=== PATIENT | female | born 1965 | race African-American/Black ===

== ENCOUNTER 2016-12-19 20:46 | Emergency (ER) | payer MEDICAID ==
[~2016-12-19] VITALS: Ht 165.1 cm; Wt 90.7 kg
[~2016-12-19 20:46] MED LIST: ABILIFY30 MG ORAL; ALBUTEROL SULF8.5 GM INH; AUGMENTIN TAB875 MG ORAL; AZITHROMYCIN250 MG ORAL; BENAZEPRIL-HCT1 EAC1 ORAL; CRESTOR10 M1 ORAL; CYCLOBENZAPRINE10 MG ORAL; DIAZEPAM10 MG ORAL; FLUOXETINE HCL20 MG ORAL; IBUPROFEN600 MG ORAL; IBUPROFEN800 M1 PO; KEFLEX500 MG ORAL; NEURONTIN300 MG ORAL; NKM; NORCO 5-325 TA1 EACH ORAL; NORCO 5-325 TA1 EACH PO; PREDNISONE20 MG ORAL; PREDNISONE5 M3 PO; PROZAC20 MG PO; VALIUM10 MG ORAL; VICODIN 5-5001 EACH ORAL; XOPENEX0.63 MG/3 HHN; ZITHROMAX250 MG ORAL; [UNRECOGNIZED DRUG - REMARK]
[2016-12-19 21:00] VITALS: BP 150/106
[2016-12-19] MEDS ORDERED: AUGMENTIN 875-1 EAC1 ORAL (21:23)
[2016-12-19] MEDS ORDERED: FLONASE ALLERG9.9 ML NS (21:23)
[2016-12-19] MEDS ORDERED: PSEUDOEPHEDRINE30 MG PO (21:23)
[2016-12-19 21:27] VITALS: BP 150/106
--- NOTE | 2016-12-19 21:36 | Emergency Room Report ---
History of Present Illness General Chief Complaint: Allergic Reaction Source: Patient Present Illness HPI [id number] with increased sinus frontal pressure, drainage to back of throat, congestion for 2-3 days Recurrent sinusitis history PMD unavailable Denies fever/chills Allergies: Coded Allergies: No Known Allergies (Unverified , 07/20/12) Patient History Past Medical History: none Past Surgical History: none Pertinent Family History: none Social History: Denies: alcohol use, drug use, smoking Last Menstrual Period: N/A Now: No Immunizations: UTD Reviewed Nursing Documentation: PMH: Agreed, PSxH: Agreed Nursing Documentation-PMH Hx Hypertension: Yes Hx Pacemaker: No Hx Asthma: Yes - BRONCHITIS Hx COPD: No Hx Diabetes: No Hx Cancer: No Hx Gastrointestinal Problems: No Hx Dialysis: No Hx Neurological Problems: No Hx Cerebrovascular Accident: No Hx Seizures: No Review of Systems All Other Systems: negative except mentioned in HPI Physical Exam Vital Signs Date Time Temp Pulse Resp B/P Pulse Ox O2 Delivery O2 Flow Rate FiO2 12/19/16 20:55 98.1 74 20 150/106 98 Room Air Sp02 EP Interpretation: reviewed, normal General Appearance: normal inspection, well appearing, no apparent distress, alert, GCS 15, non-toxic Head: normocephalic, atraumatic Eyes: bilateral eye EOMI, bilateral eye PERRL ENT: normal ENT inspection, hearing grossly normal, normal pharynx, no angioedema, normal voice, other - +ttp to bilateral frontal sinus Neck: normal inspection, full range of motion, supple, no bony tend Respiratory: normal inspection, lungs clear, normal breath sounds, no respiratory distress, no retraction, no wheezing Cardiovascular #1: regular rate, rhythm, no edema Gastrointestinal: normal inspection, normal bowel sounds, non tender, soft, no guarding, no hernia Genitourinary: no CVA tenderness Musculoskeletal: normal inspection, back normal, normal range of motion, Fabian' s Sign negative Neurologic: normal inspection, alert, oriented x3, responsive, gasoline service attendant III-XII nml as tested, motor strength/tone normal, speech normal Psychiatric: normal inspection, judgement/insight normal, mood/affect normal Skin: normal inspection, normal color, no rash Medical Decision Making Diagnostic Impression: Primary Impression: Sinusitis Qualified Codes: J01.11 - Acute recurrent frontal sinusitis ER Course Rx Augmentin Rx Flonase, sudafed for symptomatic relief PMD followup Last Vital Signs Date Time Temp Pulse Resp B/P Pulse Ox O2 Delivery O2 Flow Rate FiO2 12/19/16 20:55 98.1 74 20 150/106 98 Room Air Status: improved Disposition: HOME, SELF-CARE Condition: Improved Scripts Fluticasone Propionate (Flonase Allergy Relief) 9.9 Ml Maxwell.susp 9.9 ML NS BID for 7 Days, #1 UNIT Prov: COLIN FULLER M.D. 12/19/16 Pseudoephedrine Hcl* (SUDAFED*) 30 Mg Tablet 30 MG PO Q6H for congestion for 3 Days, #20 TAB Prov: COLIN FULLER M.D. 12/19/16 Amoxicillin/Potassium Clav 875-125* (AUGMENTIN 875-125 TABLET*) 1 Each Tablet 1 TAB ORAL TWICE A DAY for 7 Days, #14 TAB Prov: COLIN FULLER M.D. 12/19/16 Patient Instructions: Sinusitis, Adult, [id number] Additional Instructions: - Take ALL antibiotic until finished - Use sudafed and flonase spray during the day to open your sinuses - Follow up with primary doctor in 3 days COLIN FULLER M.D. Dec 19, 2016 21:36
== END 2016-12-19 21:40 | disposition home or self-care (01) ==
LOC: EMR 21:31
DX: J01.11 Acute recurrent frontal sinusitis (principal); I10 Essential (primary) hypertension
CPT/HCPCS: 99284

== ENCOUNTER 2017-05-20 14:13 | Emergency (ER) | payer MEDICAID ==
[~2017-05-20] VITALS: Ht 157.5 cm; Wt 90.7 kg
[~2017-05-20 14:13] MED LIST changes: +AUGMENTIN 875-1 EAC1 ORAL; +FLONASE ALLERG9.9 ML NS; +PSEUDOEPHEDRINE30 MG PO
[2017-05-20] MEDS ORDERED: UNOBMED (15:00)
[2017-05-20 15:10] VITALS: BP 167/73
[2017-05-20] MEDS ORDERED: NORCO 5-325 TA1 EAC1 ORAL (15:40)
[2017-05-20] MEDS ORDERED: CEPHALEXIN500 MG ORAL (15:40)
[2017-05-20] MEDS ORDERED: PROMETHAZINE-D118 ML ORAL (15:40)
[2017-05-20] MEDS ORDERED: BACTRIM 400-801 EACH ORAL (15:40)
[2017-05-20 16:12] VITALS: BP 167/73
--- NOTE | 2017-05-20 23:46 | Emergency Room Report ---
History of Present Illness General Chief Complaint: Skin Rash/Abscess Source: Patient Present Illness HPI The patient is a 52-year-old female presenting for possible skin infection as well as sore throat and cough. She states that she noticed pain and swelling to the skin on her throat approximately 2 weeks prior. She states that her skin then opened and she saw white discharge. She is now also complaining of sore throat and cough which began 3 days prior. She denies any known sick contacts or recent travel. Pain 8/10 dull ache the back of the throat. She denies other symptoms including fever chills Allergies: Coded Allergies: No Known Allergies (Unverified , 07/20/12) Patient History Past Medical History: see triage record Pertinent Family History: none Last Menstrual Period: Post Reviewed Nursing Documentation: PMH: Agreed, PSxH: Agreed Nursing Documentation-PMH Hx Hypertension: Yes Hx Pacemaker: No Hx Asthma: Yes - BRONCHITIS Hx COPD: No Hx Diabetes: No Hx Cancer: No Hx Gastrointestinal Problems: No Hx Dialysis: No Hx Neurological Problems: No Hx Cerebrovascular Accident: No Hx Seizures: No Review of Systems All Other Systems: negative except mentioned in HPI Physical Exam Vital Signs Date Time Temp Pulse Resp B/P (MAP) Pulse Ox O2 Delivery O2 Flow Rate FiO2 05/20/17 14:56 98.1 66 17 167/73 100 Room Air Sp02 EP Interpretation: reviewed, normal General Appearance: no apparent distress, alert, GCS 15, non-toxic Head: normocephalic, atraumatic Eyes: bilateral eye normal inspection, bilateral eye PERRL ENT: hearing grossly normal, no angioedema, normal voice, uvula midline, pharyngeal erythema Neck: full range of motion, supple/symm/no masses, other - 2cm in diameter open wound of the anterior throat. No bleeding Respiratory: chest non-tender, lungs clear, normal breath sounds, no wheezing, speaking full sentences Cardiovascular #1: regular rate, rhythm, no edema Musculoskeletal: back normal, gait/station normal, normal range of motion, non- tender Neurologic: alert, oriented x3, responsive, motor strength/tone normal, sensory intact, speech normal Psychiatric: judgement/insight normal, memory normal, mood/affect normal, no suicidal/homicidal ideation Skin: normal color, warm/dry, well hydrated, rash - Mid anterior throat has 2cm open wound Lymphatic: no adenopathy Medical Decision Making PA Attestation Dr. Sanchez is my supervising physician. Patient management was discussed with my supervising physician Diagnostic Impression: Primary Impression: Abscess Additional Impression: Pharyngitis, acute Qualified Codes: J02.9 - Acute pharyngitis, unspecified ER Course The patient is a 52-year-old female presenting for possible skin infection as well as sore throat and cough. Differential diagnosis include but not limited to pharyngitis, abscess, sinusitis, AOM, bronchitis, PNA Physical exam: Vitals within normal limits. Afebrile. No apparent distress HEENT exam: There is bilateral tonsillar erythema. Uvula midline. Moist mucous membranes. There is no cervical lymphadenopathy. Lungs are clear to auscultation bilaterally Skin is warm and dry. Anterior throat is approximately 2 cm open wound. Appears to have had been abscess. No bleeding or discharge The patient will be discharged home with antibiotics for suspected abscess. She is also given prescriptions for cough medication and pain medication. She will follow up with primary doctor. ER precautions are given Last Vital Signs Date Time Temp Pulse Resp B/P (MAP) Pulse Ox O2 Delivery O2 Flow Rate FiO2 05/20/17 16:12 98.1 66 17 167/73 100 Room Air Status: improved Disposition: HOME, SELF-CARE Condition: Improved Scripts D-Methorphan Hb/Prometh Hcl* (PROMETHAZINE-DM SYRUP*) 118 Ml Syrup 5 ML ORAL Q6H Y for For Cough, #118 ML 0 Refills Prov: TERZIAN,MARK P.A. 05/20/17 Sulfamethoxazole/Trimethoprim (BACTRIM 400-80 MG TABLET*) 1 Each Tablet 1 TAB ORAL TWICE A DAY, #14 TAB Prov: TERZIAN,MARK P.A. 05/20/17 Cephalexin* (KEFLEX*) 500 Mg Capsule 500 MG ORAL EVERY 12 HOURS, #14 CAP 0 Refills Prov: TERZIAN,MARK P.A. 05/20/17 Hydrocodone Bit/Acetaminophen 5-325* (NORCO 5-325 TABLET*) 1 Each Tablet 1 TAB ORAL Q6HR Y for For Pain, #10 TAB Prov: TERZIAN,MARK P.A. 05/20/17 Patient Instructions: Abscess, Pharyngitis Additional Instructions: I discussed my findings with the patient. All questions and concerns have been answered. Treatment and medication compliance have been addressed. I advised the patient that they need to follow up with PMD in 3-5 days. Return to ED if symptoms worsen, new symptoms arise, or if needed for any reason. Patient verbalized understanding of discharge instructions. MARK MCNALLY May 20, 2017 23:46
== END 2017-05-20 16:15 | disposition home or self-care (01) ==
LOC: EMR 15:12
DX: J39.1 Other abscess of pharynx (principal); J02.9 Acute pharyngitis, unspecified; I10 Essential (primary) hypertension; J45.909 Unspecified asthma, uncomplicated
CPT/HCPCS: 99284

== ENCOUNTER 2017-06-01 20:58 | Emergency (ER) | payer MEDICAID ==
[~2017-06-01] VITALS: Ht 165.1 cm; Wt 101.6 kg
[~2017-06-01 20:58] MED LIST changes: +BACTRIM 400-801 EACH ORAL; +CEPHALEXIN500 MG ORAL; +NORCO 5-325 TA1 EAC1 ORAL; +PROMETHAZINE-D118 ML ORAL; +UNOBMED
[2017-06-01 21:35] VITALS: BP 194/106
[2017-06-01 22:16] LABS: APPEARANCE,URINE CLEAR; BILIRUBIN, URINE NEGATIVE (NEGATIVE); COLOR,URINE PALE YELLOW; GLUCOSE, URINE (UA) NEGATIVE (NEGATIVE); KETONES,URINE NEGATIVE (NEGATIVE); LEUKOCYTE ESTERASE ,URINE 1+ (NEGATIVE); NITRITE,URINE NEGATIVE (NEGATIVE); PH,URINE 7 (4.5-8.0); PROTEIN,URINE NEGATIVE (NEGATIVE); UROBILINOGEN,URINE NORMAL MG/DL (0.0-1.0)
--- NOTE | 2017-06-01 22:45 | Emergency Room Report ---
History of Present Illness General Chief Complaint: Vaginal Source: Patient Present Illness HPI Is a 51-year-old female who is postmenopausal. She present with chief complaint of hematuria rather than angina bleeding. She said she is increased urination. When she wiped she noticed some blood. No rectal bleeding. Does have some suprapubic right lower quadrant pain. Pain is sharp in nature. No nausea no vomiting. Does have coughing congestion. Never had this problem before. Allergies: Coded Allergies: No Known Allergies (Unverified , 07/20/12) Patient History Past Medical History: see triage record, old chart reviewed Past Surgical History: other Pertinent Family History: none Social History: Denies: smoking Last Menstrual Period: 5 years ago Now: No Immunizations: other Reviewed Nursing Documentation: PMH: Agreed, PSxH: Agreed Nursing Documentation-PMH Past Medical History: No History, Except For Hx Hypertension: Yes Hx Pacemaker: No Hx Asthma: Yes - BRONCHITIS Hx COPD: No Hx Diabetes: No Hx Cancer: No Hx Gastrointestinal Problems: No Hx Dialysis: No Hx Neurological Problems: No Hx Cerebrovascular Accident: No Hx Seizures: No Review of Systems Eye: Denies: eye pain, blurred vision ENT: Reports: nose congestion, throat pain, Denies: ear pain, throat swelling Respiratory: Reports: cough, Denies: shortness of breath Cardiovascular: Denies: chest pain, palpitations Gastrointestinal: Denies: abdominal pain, diarrhea, nausea, vomiting Genitourinary: Reports: hematuria Musculoskeletal: Denies: back pain, joint pain Skin: Denies: rash Neurological: Denies: headache, numbness Endocrine: Denies: increased thirst, increased urine Hematologic/Lymphatic: Denies: easy bruising All Other Systems: negative except mentioned in HPI Physical Exam Vital Signs Date Time Temp Pulse Resp B/P (MAP) Pulse Ox O2 Delivery O2 Flow Rate FiO2 06/01/17 21:22 98.2 70 16 194/106 98 Room Air vitals with high blood pressure Sp02 EP Interpretation: reviewed, normal General Appearance: well appearing, no apparent distress, alert Head: normocephalic, atraumatic Eyes: bilateral eye PERRL, bilateral eye EOMI ENT: hearing grossly normal, normal pharynx Neck: full range of motion, supple, no meningismus Respiratory: chest non-tender, lungs clear, normal breath sounds Cardiovascular #1: regular rate, rhythm, no murmur Gastrointestinal: normal bowel sounds, non tender, no mass, no organomegaly, no bruit, non-distended Musculoskeletal: back normal, gait/station normal, normal range of motion Psychiatric: mood/affect normal Skin: warm/dry Medical Decision Making Diagnostic Impression: Primary Impression: Hematuria Qualified Codes: R31.9 - Hematuria, unspecified ER Course Patient with hematuria. Resolved now. She may have passed a small kidney stone. No evidence of infection in the urine. We'll wait for culture. She is asymptomatic here now. She is eating and drinking without a problem. We'll discharge home. CT/MRI/US Diagnostic Results CT/MRI/US Diagnostic Results : Imaging Test Ordered: CT abdomen and pelvis Impression negative per radiologist Last Vital Signs Date Time Temp Pulse Resp B/P (MAP) Pulse Ox O2 Delivery O2 Flow Rate FiO2 06/01/17 21:22 98.2 70 16 194/106 98 Room Air Status: improved Disposition: HOME, SELF-CARE Condition: Stable Scripts Ibuprofen* (MOTRIN*) 600 Mg Tablet 600 MG ORAL Q6H Y for For Pain, #30 TAB Prov: STORM SMITH M.D. 06/01/17 Referrals: [facility],REFERRING (PCP) Additional Instructions: Followup with your DrHallie in 7 days. In he still have blood in your urine, he will be referred to see a urologist for further workup. Return if worse. STORM SMITH M.D. Jun 01, 2017 22:45
[2017-06-01] MEDS ORDERED: IBUPROFEN600 MG ORAL (23:34)
[2017-06-01 23:44] VITALS: BP 178/86
--- NOTE | 2017-06-02 12:50 | Diagnostic Imaging Report ---
Indication: Abdominal pain Technique: Continuous helical transaxial imaging of the abdomen and pelvis was obtained from the lung bases to the pubic symphysis. No intravenous contrast was administered. Coronal 2-D reformats were also obtained. Automatic Exposure Control was utilized. Total Dose length Product (DLP): 959.[address] Dose Index Volume (CTDIvol): 18.16 mGy Comparison: none Findings: Gallstones demonstrated. Lung bases are clear. Solid organ evaluation is limited on this study done without IV contrast material. Mild mural calcium noted within the aorta. No hydronephrosis seen. There is no evidence of bowel obstruction. There is no evidence of acute appendicitis. No free fluid identified or free air identified. Uterus noted. Adnexal structures not well seen on this examination. There is a small tubular structure in the left adnexa measuring 4.5 x 1.0 cm. This could represent hydrosalpinx. Consider ultrasound. Diverticula noted within the colon. No definite evidence of acute diverticulitis. IMPRESSION: Cholelithiasis. Atherosclerotic vascular disease. Diverticulosis of the colon. No definite diverticulitis. Suggestion of a ovoid left adnexal cyst versus hydrosalpinx. Please correlate clinically. Consider ultrasound for further evaluation. The CT scanner at [facility] is accredited by the [employer] and the scans are performed using dose optimization techniques as appropriate to a performed exam including Automatic Exposure control.
== END 2017-06-01 23:44 | disposition home or self-care (01) ==
LOC: EMR 21:35
DX: R31.9 Hematuria, unspecified (principal); I10 Essential (primary) hypertension; J45.909 Unspecified asthma, uncomplicated; K80.20 Calculus of gallbladder without cholecystitis without obstruction; K57.30 Diverticulosis of large intestine without perforation or abscess without bleeding
CPT/HCPCS: 74176; 81003; 99284

== ENCOUNTER 2018-11-05 15:39 | Emergency (ER) | payer MEDICAID ==
[~2018-11-05] VITALS: Ht 165.1 cm; Wt 90.7 kg
[2018-11-05 15:52] VITALS: BP 153/86
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
--- NOTE | 2018-11-05 17:05 | Diagnostic Imaging Report ---
Indication: Chest pain Technique: One view of the chest Comparison: 07/15/2014 Findings: Lungs and pleural spaces are clear. Heart size is normal. No significant interim change Impression: No acute process
[2018-11-05 17:13] LABS: APPEARANCE,URINE CLEAR; BILIRUBIN, URINE NEGATIVE (NEGATIVE); GLUCOSE, URINE (UA) NEGATIVE (NEGATIVE); KETONES,URINE 1+ (NEGATIVE); LEUKOCYTE ESTERASE ,URINE 2+ (NEGATIVE); NITRITE,URINE NEGATIVE (NEGATIVE); PH,URINE 8 (4.5-8.0); PROTEIN,URINE 1+ (NEGATIVE); UROBILINOGEN,URINE 1 MG/DL (0.0-1.0)
[2018-11-05 17:14] LABS: COLOR,URINE YELLOW
[2018-11-05 17:28] LABS: BASOPHILS % (AUTO) 1.2 % (0.0-2.0); EOSINOPHILS % (AUTO) 2.1 % (0.0-3.0); HEMATOCRIT 38.3 % (37.0-47.0); LYMPHOCYTES % (AUTO) 42.5 % (20.0-45.0); MEAN CORPUSCULAR VOLUME 76 FL (80-99); NEUTROPHILS % (AUTO) 50.3 % (45.0-75.0); PLATELET COUNT 243 K/UL (150-450); RED BLOOD COUNT 5.03 M/UL (4.20-5.40); WHITE BLOOD COUNT 4.8 K/UL (4.8-10.8)
[2018-11-05] MEDS ORDERED: Morphine Sulfate 2mg/ml Inj(IV/IM USE ONLY) IVP ONE (17:30)
[2018-11-05 17:35] LABS: ALANINE AMINOTRANSFERASE 31 U/L (12-78); ALBUMIN 4.2 G/DL (3.4-5.0); ALKALINE PHOSPHATASE 66 U/L (46-116); ANION GAP 9 mmol/L (5-15); ASPARTATE AMINO TRANSFERASE 14 U/L (15-37); BILIRUBIN,TOTAL 0.5 MG/DL (0.2-1.0); BLOOD UREA NITROGEN 12 mg/dL (7-18); CALCIUM 9.6 MG/DL (8.5-10.1); CARBON DIOXIDE 34 MMOL/L (21-32); CHLORIDE 104 MMOL/L (98-107); CREATINE KINASE 80 U/L (26-308); CREATININE 0.9 MG/DL (0.55-1.30); POTASSIUM 2.8 MMOL/L (3.5-5.1); SODIUM 147 MMOL/L (136-145)
[2018-11-05] MEDS ORDERED: cefTRIAXone 1 GM in NS 55 ML IVPB ONE (18:00)
--- NOTE | 2018-11-05 18:22 | NUR ---
ED Nurse Note: ultrasound at the bedside.
[2018-11-05 18:23] VITALS: BP 158/72
[2018-11-05] MEDS ORDERED: CEPHALEXIN500 MG ORAL (18:52)
[2018-11-05] MEDS ORDERED: IBUPROFEN600 MG ORAL (18:52)
--- NOTE | 2018-11-05 18:56 | Diagnostic Imaging Report ---
EXAM: US Duplex Left Lower Extremity Veins CLINICAL HISTORY: DVT TECHNIQUE: Real-time duplex ultrasound scan of the left lower extremity veins integrating B-mode two-dimensional vascular structure, Doppler spectral analysis, color flow Doppler imaging and compression. COMPARISON: No relevant prior studies available. FINDINGS: Deep veins: Unremarkable. Normal compression and normal response to augmentation. Superficial veins: Unremarkable as visualized. Soft tissues: No acute findings. IMPRESSION: No evidence of deep venous thrombosis in the left lower extremity.
--- NOTE | 2018-11-05 19:03 | NUR ---
HAND-OFF: Report given to BELA Rouse. Pt remains stable.
--- NOTE | 2018-11-05 19:03 | NUR ---
ED Nurse Note: recieved report from RN andrew and assumed care, all safety precautions in place, pt awake and alert, vss, resp even and unlabored, pt's nephew at the bedside, iv intact and patent, will cont monitor.
--- NOTE | 2018-11-05 19:15 | NUR ---
ED Nurse Note: verified w/ ERMD regarding pt's potassium level, will wait for further orders.
[2018-11-05] MEDS ORDERED: POTASSIUM CHLO20 ME1 ORAL (19:18)
--- NOTE | 2018-11-05 19:25 | Emergency Room Report ---
History of Present Illness General Chief Complaint: Generalized Weakness Source: Patient, Medical Record Present Illness HPI Patient is a 53-year-old female presented after increased generalized weakness. Patient was noted to have increased feeling of weakness all over. She reports having some intermittent chills. She states she has been having some hair loss as well as feeling of weakness all over. She had noticed increased swelling to her left lower extremity and has had recent surgery on an ankle fracture in that location. She denies any definite fever. She denies any cough or chest discomfort. Patient had been recently more ambulatory on her fracture and is currently using a boot. She is being followed by orthopedics.Patient denies any vomiting or diarrhea. Allergies: Coded Allergies: No Known Allergies (Unverified , 07/20/12) Patient History Past Medical History: see triage record Last Menstrual Period: menopause Reviewed Nursing Documentation: PMH: Agreed; PSxH: Agreed Nursing Documentation-PMH Past Medical History: No History, Except For Hx Hypertension: Yes Hx Pacemaker: No Hx Asthma: Yes - BRONCHITIS Hx COPD: No Hx Diabetes: No Hx Cancer: No Hx Gastrointestinal Problems: No Hx Dialysis: No Hx Neurological Problems: No Hx Cerebrovascular Accident: No Hx Seizures: No Review of Systems All Other Systems: negative except mentioned in HPI Physical Exam Vital Signs Date Time Temp Pulse Resp B/P (MAP) Pulse Ox O2 Delivery O2 Flow Rate FiO2 11/05/18 15:45 97.3 71 18 153/86 (108) 99 Room Air Sp02 EP Interpretation: reviewed, normal General Appearance: normal inspection, well appearing, no apparent distress, alert, GCS 15, obese Head: atraumatic ENT: normal ENT inspection, hearing grossly normal, normal voice Neck: normal inspection, full range of motion, supple, no bony tend Respiratory: normal inspection, lungs clear, normal breath sounds, no respiratory distress, no retraction, no wheezing Cardiovascular #1: regular rate, rhythm, no edema Gastrointestinal: normal inspection, normal bowel sounds, non tender, soft, no guarding, no hernia Genitourinary: no CVA tenderness Musculoskeletal: normal inspection, back normal, normal range of motion Neurologic: normal inspection, alert, oriented x3, responsive, nutrition professor III-XII nml as tested, speech normal, other Psychiatric: normal inspection, judgement/insight normal, mood/affect normal Skin: normal inspection, normal color, no rash Medical Decision Making Diagnostic Impression: Primary Impression: Ankle pain Additional Impressions: Urinary tract infection Hypokalemia ER Course Patient presented for generalized weakness. Differential diagnosis include was not limited to abscess, pulmonary embolism, dehydration, hypokalemia among others. Because of complexity of patient's case laboratory testing and imaging studies were ordered. Patient's laboratory testing was notable for some hypokalemia as well as a normal white blood count. Patient was also noted to have some evidence of urinary infection. Patient was given medications for pain in the emergency department. She appears to be stable for outpatient management. Patient be discharged home and advised to follow-up with her primary care physician for recheck. She advised to return if she had any worsening of condition or other concerns. Labs Test 11/05/18 16:45 White Blood Count 4.8 K/UL (4.8-10.8) Red Blood Count 5.03 M/UL (4.20-5.40) Hemoglobin 13.0 G/DL (12.0-16.0) Hematocrit 38.3 % (37.0-47.0) Mean Corpuscular Volume 76 FL (80-99) Mean Corpuscular Hemoglobin 25.8 PG (27.0-31.0) Mean Corpuscular Hemoglobin Concent 33.9 G/DL (32.0-36.0) Red Cell Distribution Width 12.0 % (11.6-14.8) Platelet Count 243 K/UL (150-450) Mean Platelet Volume 6.9 FL (6.5-10.1) Neutrophils (%) (Auto) 50.3 % (45.0-75.0) Lymphocytes (%) (Auto) 42.5 % (20.0-45.0) Monocytes (%) (Auto) 4.0 % (1.0-10.0) Eosinophils (%) (Auto) 2.1 % (0.0-3.0) Basophils (%) (Auto) 1.2 % (0.0-2.0) Urine Color Yellow Urine Appearance Clear Urine pH 8 (4.5-8.0) Urine Specific [place] 1.015 (1.005-1.035) Urine Protein 1+ (NEGATIVE) Urine Glucose (UA) Negative (NEGATIVE) Urine Ketones 1+ (NEGATIVE) Urine Blood Negative (NEGATIVE) Urine Nitrite Negative (NEGATIVE) Urine Bilirubin Negative (NEGATIVE) Urine Urobilinogen 1 MG/DL (0.0-1.0) Urine Leukocyte Esterase 2+ (NEGATIVE) Urine RBC 2-4 /HPF (0 - 2) Urine WBC 5-10 /HPF (0 - 2) Urine Squamous Epithelial Cells Many /LPF (NONE/OCC) Urine Bacteria Many /HPF (NONE) Urine Trichomonas Occasional /HPF (NONE) Sodium Level 147 MMOL/L (136-145) Potassium Level 2.8 MMOL/L (3.5-5.1) Chloride Level 104 MMOL/L (98-107) Carbon Dioxide Level 34 MMOL/L (21-32) Anion Gap 9 mmol/L (5-15) Blood Urea Nitrogen 12 mg/dL (7-18) Creatinine 0.9 MG/DL (0.55-1.30) Estimat Glomerular Filtration Rate > 60 mL/min (>60) Glucose Level 99 MG/DL (74-106) Lactic Acid Level 1.40 mmol/L (0.4-2.0) Calcium Level 9.6 MG/DL (8.5-10.1) Total Bilirubin 0.5 MG/DL (0.2-1.0) Aspartate Amino Transf (AST/SGOT) 14 U/L (15-37) Alanine Aminotransferase (ALT/SGPT) 31 U/L (12-78) Alkaline Phosphatase 66 U/L (46-116) Total Creatine Kinase 80 U/L (26-308) Creatine Kinase MB 1.0 NG/ML (0.0-3.6) Creatine Kinase MB Relative Index 1.2 Troponin I 0.004 ng/mL (0.000-0.056) Total Protein 8.2 G/DL (6.4-8.2) Albumin 4.2 G/DL (3.4-5.0) Globulin 4.0 g/dL Albumin/Globulin Ratio 1.0 (1.0-2.7) EKG Diagnostic Results Rate: normal - 68 Rhythm: NSR ST Segments: no acute changes Last Vital Signs Date Time Temp Pulse Resp B/P (MAP) Pulse Ox O2 Delivery O2 Flow Rate FiO2 11/05/18 18:23 72 16 158/72 99 Room Air 11/05/18 18:00 97.3 Status: improved Disposition: HOME, SELF-CARE Condition: Stable Scripts Potassium Chloride* (K-DUR*) 20 Meq Tab.er.prt 20 MEQ ORAL DAILY, #2 TAB 0 Refills Prov: Reagan Whiteside MD 11/05/18 Cephalexin* (KEFLEX*) 500 Mg Capsule 500 MG ORAL EVERY 6 HOURS, #28 CAP Prov: Reagan Whiteside MD 11/05/18 Ibuprofen* (MOTRIN*) 600 Mg Tablet 600 MG ORAL Q8H PRN for For Pain, #30 TAB 0 Refills Prov: Reagan Whiteside MD 11/05/18 Referrals: NON PHYSICIAN (PCP) Patient Instructions: Hypokalemia, Ankle Pain Reagan Whiteside MD Nov 05, 2018 19:25
--- NOTE | 2018-11-05 19:27 | NUR ---
ED Nurse Note: pt cleared to be d/c per ERMD, pt discharge and aftercare instruction provided w/ prescription, pt education done via discussion and handout, pt advised to follow up with pcp or return to ed if changes in condition, pt vss, resp even and unlabored on RA, iv d/c and ID band removed, pt verbalized understanding and agrees with plan, pt nephew at the bedside to accompanie pt. pt left with all belongings.
[2018-11-05 19:28] VITALS: BP 159/67
--- NOTE | 2018-11-07 14:01 | Cardiology Report ---
APPROVED REPORT EKG Measurement Heart [id number] Normal sinus rhythm Cannot rule out Anterior infarct, age undetermined Abnormal ECG
== END 2018-11-05 19:28 | disposition home or self-care (01) ==
LOC: EMR 17:00
DX: N39.0 Urinary tract infection, site not specified (principal); E87.6 Hypokalemia; M25.572 Pain in left ankle and joints of left foot; I10 Essential (primary) hypertension; E66.9 Obesity, unspecified; Z68.33 Body mass index [BMI] 33.0-33.9, adult
CPT/HCPCS: 36415; 71045; 80053; 81003; 82550; 82553; 83605; 84484; 85025; 87040; 87086; 93005; 93970; 96361; 96365; 96375; 99284; J0696; J2270; J8499

== ENCOUNTER 2019-04-05 02:34 | Emergency (ER) | payer MEDICAID ==
[~2019-04-05] VITALS: Ht 165.1 cm; Wt 90.7 kg
[~2019-04-05 02:34] MED LIST changes: +POTASSIUM CHLO20 ME1 ORAL
[2019-04-05 02:45] VITALS: BP 126/90
--- NOTE | 2019-04-05 02:46 | NUR ---
ED Nurse Note: PT walked in to ED C/O right earache x 7 days. pt states she has hard time hearing to right ear and feels pressure. VSS. pt is AOx4
[2019-04-05] MEDS ORDERED: CORTISPORIN EAR10 ML OTIC (02:55)
--- NOTE | 2019-04-05 03:01 | NUR ---
ER DISCHARGE NOTE: Patient is cleared to be discharged per ERMD, pt is aox4, on room air, with stable vital signs. pt was given dc and prescription instructions, pt was able to verbalize understanding, pt id band removed without complications. pt is able to ambulate with steady gait. pt took all belongings.
--- NOTE | 2019-04-05 03:11 | Emergency Room Report ---
History of Present Illness General Chief Complaint: Earache Source: Patient Present Illness HPI Patient presents with complaints of increased pressure in the right ear reports that she feels like she needs to " pop" her right ear Denies any headache denies any visual changes she does have some localized pain to the ear itself Denies any fevers or chills denies any other trauma ongoing for the past 7 to 10 days Allergies: Coded Allergies: No Known Allergies (Unverified , 07/20/12) Patient History Past Medical History: see triage record Last Menstrual Period: 15 year ago Now: No : 3 Para: 2 Reviewed Nursing Documentation: PMH: Agreed; PSxH: Agreed Nursing Documentation-PMH Past Medical History: No History, Except For Hx Hypertension: Yes Hx Pacemaker: No Hx Asthma: Yes - BRONCHITIS Hx COPD: No Hx Diabetes: No Hx Cancer: No Hx Gastrointestinal Problems: No Hx Dialysis: No Hx Neurological Problems: No Hx Cerebrovascular Accident: No Hx Seizures: No Review of Systems All Other Systems: negative except mentioned in HPI Physical Exam Vital Signs Date Time Temp Pulse Resp B/P (MAP) Pulse Ox O2 Delivery O2 Flow Rate FiO2 04/05/19 02:38 97.9 98 18 128/94 (105) 98 Room Air Sp02 EP Interpretation: reviewed, normal General Appearance: well appearing, no apparent distress Head: normocephalic, atraumatic Eyes: bilateral eye PERRL, bilateral eye EOMI ENT: other - Cerumen impaction on the right ear Neck: supple Respiratory: lungs clear, normal breath sounds Cardiovascular #1: regular rate, rhythm Gastrointestinal: non tender, soft Musculoskeletal: normal inspection Neurologic: alert, oriented x3 Skin: no rash Lymphatic: no adenopathy Medical Decision Making Diagnostic Impression: Primary Impression: cerumen impaction ER Course Given the history exam and findings there does appear to be cerumen impaction on the right side Likely causing the discomfort the patient is experiencing patient was prescribed ointment And drops for further improvement And after initial intervention will require close outpatient follow-up for further reevaluation Last Vital Signs Date Time Temp Pulse Resp B/P (MAP) Pulse Ox O2 Delivery O2 Flow Rate FiO2 04/05/19 03:01 98.0 85 16 128/88 99 Room Air Status: improved Disposition: HOME, SELF-CARE Condition: Stable Scripts Neomycin/Polymyxin B Sulf/Hc* (CORTISPORIN EAR SOLUTION*) 10 Ml Solution 2 DROP OTIC FOUR TIMES A DAY, #1 EA Instill in affected ear as directed for 7 days Prov: Naeem Pierre DO 04/05/19 Patient Instructions: Cerumen Impaction Additional Instructions: Patient is provided with the discharge instructions notified to follow up with primary doctor in the next 2-3 days otherwise return to the er with any worsening symptoms. Please note that this report is being documented using DRAGON technology. This can lead to erroneous entry secondary to incorrect interpretation by the dictating instrument. Naeem Pierre DO Apr 05, 2019 03:11
== END 2019-04-05 03:01 | disposition home or self-care (01) ==
LOC: EMR 03:00
DX: H61.21 Impacted cerumen, right ear (principal); I10 Essential (primary) hypertension
CPT/HCPCS: 99282

== ENCOUNTER 2019-07-03 16:22 | Emergency (ER) | payer MEDICAID ==
[~2019-07-03] VITALS: Ht 165.1 cm; Wt 90.7 kg
[~2019-07-03 16:22] MED LIST changes: +CORTISPORIN EAR10 ML OTIC
--- NOTE | 2019-07-03 16:44 | Emergency Room Report ---
History of Present Illness General Chief Complaint: Skin Rash/Abscess Source: Patient Present Illness HPI 54 YO female presents to the ED c/o 12/01 in severity pain, swelling, and erythema of cyst on the right cheek x 1 year. was placed on topical Clindamycin by her skin doctor, but her symptoms are progressing and the cyst is getting larger. Pt. states her friend tried to pop it 2 days ago and she had acute onset of her symptoms the next day. Pt. reports the site where her friend tried to pop it is itchy but she is trying her best not to scratch it. She reports woke up today with warmth, erythema. Denies fevers or chills. Patient denies pain with eye movements. Allergies: Coded Allergies: No Known Allergies (Unverified , 07/20/12) Patient History Past Medical History: see triage record Past Surgical History: none Pertinent Family History: none Last Menstrual Period: MENOPAUSAL Now: No Reviewed Nursing Documentation: PMH: Agreed; PSxH: Agreed Nursing Documentation-PMH Hx Hypertension: Yes - HIGH CHOLESTEROL Hx Pacemaker: No Hx Asthma: Yes - BRONCHITIS Hx COPD: No Hx Diabetes: No Hx Cancer: No Hx Gastrointestinal Problems: No Hx Dialysis: No Hx Neurological Problems: No Hx Cerebrovascular Accident: No Hx Seizures: No Review of Systems All Other Systems: negative except mentioned in HPI Physical Exam Vital Signs Date Time Temp Pulse Resp B/P (MAP) Pulse Ox O2 Delivery O2 Flow Rate FiO2 07/03/19 16:29 98.4 82 16 122/81 (95) 99 Room Air Sp02 EP Interpretation: reviewed, normal General Appearance: no apparent distress, alert, GCS 15, non-toxic Head: normocephalic, atraumatic Eyes: bilateral eye normal inspection, bilateral eye PERRL ENT: hearing grossly normal, normal voice, other - 2cm palpable epidermoid cyst of the right cheek with surrounding erythema and warmth, some swelling extending toward the right lower lid. no pain with eye movement. Neck: full range of motion Respiratory: chest non-tender, lungs clear, normal breath sounds, speaking full sentences Cardiovascular #1: regular rate, rhythm, no edema Gastrointestinal: normal bowel sounds, non tender, soft Rectal: deferred Genitourinary: normal inspection Musculoskeletal: back normal, normal range of motion, gait/station normal, non- tender Neurologic: alert, motor strength/tone normal, oriented x3, sensory intact, responsive, speech normal Psychiatric: judgement/insight normal Lymphatic: no adenopathy Medical Decision Making PA Attestation Dr. Parada is my supervising Physician whom patient management has been discussed with. Diagnostic Impression: Primary Impression: Infected sebaceous cyst of skin Additional Impression: Facial cellulitis ER Course 54 YO female presents to the ED c/o 12/01 in severity pain, swelling, and erythema of cyst on the right cheek x 1 year. was placed on topical Clindamycin by her skin doctor, but her symptoms are progressing and the cyst is getting larger. Pt. states her friend tried to pop it 2 days ago and she had acute onset of her symptoms the next day. Pt. reports the site where her friend tried to pop it is itchy but she is trying her best not to scratch it. She reports woke up today with warmth, erythema. Denies fevers or chills. Patient denies pain with eye movements. Ddx considered but are not limited to cellulitis, abscess, cystic acne, necrotizing fasciitis, insect bite , preseptal/septal orbital cellulitis just to name a few. Vital signs: are WNL, pt. is afebrile H&PE are most consistent with infected epidermoid cyst of the right cheek with secondary facial cellulitis. No evidence to suggest preseptal or septal orbital cellulitis. ORDERS: none required at this time, the diagnosis is clinical ED INTERVENTIONS: -Benadryl PO DISCHARGE: At this time pt. is stable for d/c to home. Will provide printed patient care instructions, and any necessary prescriptions. Care plan and follow up instructions have been discussed with the patient prior to discharge. Last Vital Signs Date Time Temp Pulse Resp B/P (MAP) Pulse Ox O2 Delivery O2 Flow Rate FiO2 07/03/19 16:29 98.4 82 16 122/81 (95) 99 Room Air Disposition: HOME, SELF-CARE Condition: Stable Patient Instructions: Epidermal Cyst Additional Instructions: Take medications as directed. Follow up with a Primary Care Provider in 3-5 days for DERMATOLOGY REFERRAL , even if your symptoms have resolved. --Please review list of primary care clinics, if you do not already have a primary care provider Return sooner to ED if new symptoms occur, or current symptoms become worse. - Please note that this Emergency Department Report was dictated using Dragon tube handler technology software, occasionally this can lead to erroneous entry secondary to interpretation by the dictation equipment. Joanne Galeano Jul 03, 2019 16:44
[2019-07-03 16:45] VITALS: BP 122/81
--- NOTE | 2019-07-03 16:45 | NUR ---
ED Nurse Note: Patient walked in to ER c/o abscess on her right cheek. Stated she has this problem over a year. AAO x4, VSS at this time.
[2019-07-03] MEDS ORDERED: DiphenhydrAMINE 25mg Tab ORAL ONE (17:15)
[2019-07-03] MEDS ORDERED: CEPHALEXIN500 MG ORAL (17:27)
[2019-07-03] MEDS ORDERED: MUPIROCIN22 GM TOPIC (17:27)
[2019-07-03] MEDS ORDERED: BACTRIM DS TAB1 EAC1 ORAL (17:27)
[2019-07-03 17:43] VITALS: BP 122/81
--- NOTE | 2019-07-03 17:49 | NUR ---
ED Nurse Note: Pt cleared by health care Provider for discharge. DC instructions/prescription was given and explained to pt and verbalized understanding of teachings. All medical deviecs such as ID band removed. Pt is AAO x4, ambulatory and left with all personal belongings.
== END 2019-07-03 17:49 | disposition home or self-care (01) ==
LOC: EMR 16:46
DX: L72.9 Follicular cyst of the skin and subcutaneous tissue, unspecified (principal); L03.211 Cellulitis of face; E78.00 Pure hypercholesterolemia, unspecified
CPT/HCPCS: 99282

== ENCOUNTER 2019-09-07 00:18 | Emergency (ER) | payer MEDICAID ==
[~2019-09-07] VITALS: Ht 165.1 cm; Wt 90.7 kg
[~2019-09-07 00:18] MED LIST changes: +BACTRIM DS TAB1 EAC1 ORAL; +MUPIROCIN22 GM TOPIC
--- NOTE | 2019-09-07 00:41 | NUR ---
ED Nurse Note: pt presents to ED c/o generalized body aches and bilat flank px X 2 weeks. pt reports a "needle pricking" sensation on both sides of her chest. pt also reports that she has gotten UTIs in the past and that the flank feels like it is a UTI but the body aches and chest discomfort is new for her. 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 pt is AOx4, skin is warm dry and intact, pt is able to speak full sentences, VSS.
[2019-09-07 00:43] VITALS: BP 133/83
--- NOTE | 2019-09-07 00:45 | Emergency Room Report ---
History of Present Illness General Chief Complaint: Flu Like Symptoms Source: Patient Present Illness HPI 54-year-old female presents ED for generalized body aches, chest tightness. Symptoms been going on for 2 weeks. History of asthma. Was told that she may or may not have COPD. Stop smoking 5 years ago. Denies shortness of breath or cough. Denies fevers or chills. Pain is dull, 7 out of 10, nonradiating. No other aggravating relieving factors. Denies any other associated symptoms Allergies: Coded Allergies: No Known Allergies (Unverified , 07/20/12) COVID-19 Screening Contact w/high risk pt: No Recent Travel to affected area: No Experienced COVID-19 symptoms?: Yes COVID-19 symptoms experienced: Flu-Like Symptoms Patient History Past Medical History: asthma Past Surgical History: none Pertinent Family History: none Social History: Denies: smoking, alcohol use, drug use Last Menstrual Period: n/a Now: No Immunizations: UTD Reviewed Nursing Documentation: PMH: Agreed; PSxH: Agreed Nursing Documentation-PMH Hx Hypertension: Yes - HIGH CHOLESTEROL Hx Pacemaker: No Hx Asthma: Yes - BRONCHITIS Hx COPD: No Hx Diabetes: No Hx Cancer: No Hx Gastrointestinal Problems: No Hx Dialysis: No Hx Neurological Problems: No Hx Cerebrovascular Accident: No Hx Seizures: No Review of Systems All Other Systems: negative except mentioned in HPI Physical Exam Vital Signs Date Time Temp Pulse Resp B/P (MAP) Pulse Ox O2 Delivery O2 Flow Rate FiO2 15/20 00:20 97.3 62 18 133/83 (100) 95 Room Air Sp02 EP Interpretation: reviewed, normal General Appearance: no apparent distress, alert, GCS 15, non-toxic, obese Head: normocephalic, atraumatic Eyes: bilateral eye normal inspection, bilateral eye PERRL ENT: hearing grossly normal, normal pharynx, no angioedema, normal voice Neck: full range of motion, supple/symm/no masses Respiratory: chest non-tender, lungs clear, normal breath sounds, speaking full sentences Cardiovascular #1: regular rate, rhythm, no edema Cardiovascular #2: 2+ carotid (R), 2+ carotid (L), 2+ radial (R), 2+ radial (L) , 2+ dorsalis pedis (R), 2+ dorsalis pedis (L) Gastrointestinal: normal bowel sounds, non tender, soft, non-distended, no guarding, no rebound Rectal: deferred Genitourinary: normal inspection, no CVA tenderness Musculoskeletal: back normal, normal range of motion, gait/station normal, non- tender Neurologic: alert, motor strength/tone normal, oriented x3, sensory intact, responsive, speech normal Psychiatric: judgement/insight normal, memory normal, mood/affect normal, no suicidal/homicidal ideation Reflexes: 3+ bicep (R), 3+ bicep (L), 3+ tricep (R), 3+ tricep (L), 3+ knee (R) , 3+ knee (L) Lymphatic: no adenopathy Medical Decision Making Diagnostic Impression: Primary Impression: hx of copd Additional Impression: Acute bronchitis ER Course Hospital Course 54-year-old female presents to ED complaining of runny nose, congestion. generalized bodyaches. Differential diagnoses include: URI, pharyngitis, otitis media, asthma Clinical course Patient placed in isolation. I wore full PPE. After initial history, physical exam reveals a female in no acute distress. Bilateral TM unremarkable. No pharyngeal erythema. No tonsillar exudates. No lymphadenopathy. lungs clear. abdomen soft. UA unremarkable. given Tylenol. Given prednisone. I discussed findings with patient. Course is viral. Consideration for coronavirus. Afebrile, nontoxic-appearing. Vitals stable. No shortness of breath. Will discharge home with albuterol, prednison. History of COPD will prescribe antibiotics. Safe for discharge for close outpatient follow-up. States she has a PMD Diagnosis - h/o COPD, acute bronchitis Stable and discharged home. self-isolate at home. Instructed to followup with PMD. Return to ED if symptoms recur or worsen Labs Test 09/07/19 00:36 Urine Color Pale yellow Urine Appearance Clear Urine pH 6 (4.5-8.0) Urine Specific [place] 1.015 (1.005-1.035) Urine Protein Negative (NEGATIVE) Urine Glucose (UA) Negative (NEGATIVE) Urine Ketones Negative (NEGATIVE) Urine Blood Negative (NEGATIVE) Urine Nitrite Negative (NEGATIVE) Urine Bilirubin Negative (NEGATIVE) Urine Urobilinogen Normal MG/DL (0.0-1.0) Urine Leukocyte Esterase Negative (NEGATIVE) Last Vital Signs Date Time Temp Pulse Resp B/P (MAP) Pulse Ox O2 Delivery O2 Flow Rate FiO2 4/15/20 00:20 97.3 62 18 133/83 (100) 95 Room Air Status: improved Disposition: HOME, SELF-CARE Condition: Stable Scripts Prednisone* (PREDNISONE*) 20 Mg Tablet 40 MG ORAL DAILY, #10 TAB Prov: Tim Edmond MD 09/07/19 Albuterol Sulfate* (ALBUTEROL SULFATE HHN*) 2.5 Mg/3 Ml Vial.neb 3 ML INH Q6H PRN for Shortness of Breath, #30 EA 0 Refills Prov: Tim Edmond MD 09/07/19 Amoxicillin* (AMOXIL*) 500 Mg Capsule 500 MG ORAL THREE TIMES A DAY, #21 CAP Prov: Tim Edmond MD 09/07/19 Referrals: [facility],REFERRING (PCP) Tim Edmond MD Sep 07, 2019 00:45
[2019-09-07 00:56] LABS: APPEARANCE,URINE CLEAR; BILIRUBIN, URINE NEGATIVE (NEGATIVE); COLOR,URINE PALE YELLOW; GLUCOSE, URINE (UA) NEGATIVE (NEGATIVE); KETONES,URINE NEGATIVE (NEGATIVE); LEUKOCYTE ESTERASE ,URINE NEGATIVE (NEGATIVE); NITRITE,URINE NEGATIVE (NEGATIVE); PH,URINE 6 (4.5-8.0); PROTEIN,URINE NEGATIVE (NEGATIVE); UROBILINOGEN,URINE NORMAL MG/DL (0.0-1.0)
[2019-09-07] MEDS ORDERED: Acetaminophen 500mg (ES) tab ORAL ONE (01:00)
[2019-09-07] MEDS ORDERED: AMOXICILLIN500 MG ORAL (01:20)
[2019-09-07] MEDS ORDERED: ALBUTEROL2.5 MG/3 M INH (01:20)
[2019-09-07] MEDS ORDERED: PREDNISONE20 MG ORAL (01:20)
[2019-09-07 01:30] VITALS: BP 130/87
--- NOTE | 2019-09-07 01:30 | NUR ---
ER DISCHARGE NOTE: Patient is cleared to be discharged per ERMD, pt is aox4, on room air, with stable vital signs. pt was given dc and prescription instructions, pt was able to verbalize understanding, pt id band removed. pt is able to ambulate with steady gait. pt took all belongings.
== END 2019-09-07 01:30 | disposition home or self-care (01) ==
LOC: EMR 00:33
DX: J20.9 Acute bronchitis, unspecified (principal); J44.9 Chronic obstructive pulmonary disease, unspecified; Z87.891 Personal history of nicotine dependence; E78.00 Pure hypercholesterolemia, unspecified; E66.9 Obesity, unspecified; Z68.33 Body mass index [BMI] 33.0-33.9, adult
CPT/HCPCS: 81003; J7512; Z7502; 99283

== ENCOUNTER 2019-11-28 05:20 | Emergency (ER) | payer MEDICAID ==
[~2019-11-28] VITALS: Ht 165.1 cm; Wt 81.6 kg
[~2019-11-28 05:20] MED LIST changes: +ALBUTEROL2.5 MG/3 M INH; +AMOXICILLIN500 MG ORAL
[2019-11-28 05:41] VITALS: BP 147/85
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
[2019-11-28] MEDS ORDERED: HYDROcodone/Acetamin 5/325 tab ORAL ONE (05:45)
[2019-11-28] MEDS ORDERED: IBUPROFEN600 M1 ORAL (05:57)
--- NOTE | 2019-11-28 05:57 | NUR ---
ED Nurse Note: Pt was taken to CT.
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
--- NOTE | 2019-11-28 06:10 | NUR ---
ED Nurse Note: Pt returned from CT.
--- NOTE | 2019-11-28 06:30 | Diagnostic Imaging Report ---
EXAM: CT Head Without Intravenous Contrast CLINICAL HISTORY: TRAUMA TECHNIQUE: Axial computed tomography images of the head/brain without intravenous contrast. CTDI is 53.4 mGy and DLP is 1009 mGy-cm. One or more of the following dose reduction techniques were used: automated exposure control, adjustment of the mA and/or kV according to patient size, use of iterative reconstruction technique. COMPARISON: No relevant prior studies available. FINDINGS: There is no acute intracranial hemorrhage. The territorial hope-white matter differentiation is maintained throughout. There is no midline shift or mass effect. The ventricles and sulci are commensurate for age. The visualized orbits appear grossly unremarkable. Prominent bilateral lacrimal glands. The calvarium is intact. The visualized paranasal sinuses and mastoid air cells are grossly clear. IMPRESSION: No acute intracranial hemorrhage, midline shift, or mass effect.
[2019-11-28 06:37] VITALS: BP 147/85
--- NOTE | 2019-11-28 06:37 | NUR ---
ED Nurse Note: Pt cleared by ERMD for discharge. DC instructions/prescription was given and explained to pt and verbalized understanding of teachings. All medical deviecs such as ID band removed. Pt is AAO x4, ambulatory and left with all personal belongings.
== END 2019-11-28 06:37 | disposition home or self-care (01) ==
LOC: EMR 05:33
DX: S09.90XA Unspecified injury of head, initial encounter (principal); S00.83XA Contusion of other part of head, initial encounter; S00.12XA Contusion of left eyelid and periocular area, initial encounter; S00.11XA Contusion of right eyelid and periocular area, initial encounter; Y04.2XXA Assault by strike against or bumped into by another person, initial encounter; Y92.9 Unspecified place or not applicable; I10 Essential (primary) hypertension; E78.00 Pure hypercholesterolemia, unspecified; H11.32 Conjunctival hemorrhage, left eye
CPT/HCPCS: 70450; Z7502; 99284

== ENCOUNTER 2020-01-04 19:34 | Emergency (ER) | payer MEDICAID ==
[~2020-01-04] VITALS: Ht 165.1 cm; Wt 90.7 kg
[~2020-01-04 19:34] MED LIST changes: +IBUPROFEN600 M1 ORAL
--- NOTE | 2020-01-04 19:47 | NUR ---
ED Nurse Note: Pt ambulated to ED from home c/o R EAr pain and numbness as well as muffled hearing for 9 days. Pt denies fever, VSS, PT is A&Ox4, VSS
[2020-01-04] MEDS ORDERED: EAR WAX REMOVAL15 ML OT (19:51)
[2020-01-04 19:58] VITALS: BP 148/93
--- NOTE | 2020-01-04 20:07 | Emergency Room Report ---
History of Present Illness General Chief Complaint: Earache Source: Patient Present Illness HPI Disclaimer: Please note that this report is being documented using [employer] technology. This can lead to erroneous entry secondary to incorrect interpretation by the dictating instrument. HPI: 54-year-old female presents for evaluation of right ear pain. Symptoms present for approximately 10 days. She denies trauma notes muffled hearing without tinnitus, vertigo, fever, jaw pain, neck pain, sore throat, nasal congestion or other symptoms. States she has had a similar problem in the past and has been referred to ENT but has not yet seen senior lead developer. Denies drainage or swelling. Notes her hearing is muffled. No recent swimming. PMH: Reviewed PSH: Reviewed Allergies: Reviewed Social Hx: Reviewed Allergies: Coded Allergies: No Known Allergies (Unverified , 07/20/12) COVID-19 Screening Contact w/high risk pt: No Recent Travel to affected area: No Experienced COVID-19 symptoms?: No COVID-19 symptoms experienced: Flu-Like Symptoms COVID-19 Testing performed RECRUITMENT INTERN: No Patient History Now: No Nursing Documentation-PMH Hx Hypertension: Yes - HIGH CHOLESTEROL Hx Pacemaker: No Hx Asthma: Yes - BRONCHITIS Hx COPD: No Hx Diabetes: No Hx Cancer: No Hx Gastrointestinal Problems: No Hx Dialysis: No Hx Neurological Problems: No Hx Cerebrovascular Accident: No Hx Seizures: No Review of Systems All Other Systems: negative except mentioned in HPI Physical Exam Vital Signs Date Time Temp Pulse Resp B/P (MAP) Pulse Ox O2 Delivery O2 Flow Rate FiO2 01/04/20 19:37 98.4 77 19 156/93 (114) 97 Room Air General: Awake and alert, no acute distress HEENT: NC/AT. EOMI. left tympanic membrane is partially occluded by cerumen though the part that is visible is pearly hope nonbulging without surrounding edema, no drainage. The right tympanic membrane is completely obstructed by cerumen without swelling, drainage, bleeding or purulence in the external auditory canal. No mastoid tenderness on either side. Resp: Normal work of breathing Skin: Intact. No abrasions, laceration or rash over the exposed skin MSK: Normal tone and bulk. Moving all extremities. No obvious deformity. Neuro: Awake and alert. Mentating appropriately Medical Decision Making Diagnostic Impression: Primary Impression: Cerumen impaction ER Course Is a 54-year-old female presenting for evaluation of muffled hearing and discomfort on the right ear for the past 10 days. Patient appears to have a cerumen impaction. Cannot visualize tympanic membrane on the right however no other signs of infection are present. Stable, afebrile and otherwise at her baseline health. She is scheduled to follow-up with ENT as arranged by her PMD. Will prescribe Debrox and outpatient follow-up with ENT. Instructed to return should her symptoms persist. She understands and agrees with this treatment plan. Last Vital Signs Date Time Temp Pulse Resp B/P (MAP) Pulse Ox O2 Delivery O2 Flow Rate FiO2 01/04/20 19:58 98.4 82 19 148/93 97 Room Air Disposition: HOME, SELF-CARE Condition: Stable Scripts Carbamide Peroxide (EAR WAX REMOVAL) 15 Ml Drops 15 ML OT BID for 4 Days, #15 ML Prov: Simone Parada MD 01/04/20 Referrals: [facility] Patient Instructions: Cerumen Impaction Additional Instructions: Please follow-up with your primary care doctor in the next 1 to 3 days to discuss this emergency department visit and for reevaluation. Follow-up with your referral to research laboratory manager. If you have any new or worsening symptoms please return to the emergency department for reevaluation. Please note that this report is being documented using [employer] technology. This can lead to erroneous entry secondary to incorrect interpretation by the dictating instrument. Simone Parada MD Jan 04, 2020 20:07
== END 2020-01-04 20:00 | disposition home or self-care (01) ==
LOC: EMR 20:00
DX: H61.21 Impacted cerumen, right ear (principal); E78.00 Pure hypercholesterolemia, unspecified
CPT/HCPCS: 99282

== ENCOUNTER 2020-03-10 11:19 | Emergency (ER) | payer MEDICAID ==
[~2020-03-10] VITALS: Ht 165.1 cm; Wt 90.7 kg
[~2020-03-10 11:19] MED LIST changes: +EAR WAX REMOVAL15 ML OT
[2020-03-10 11:25] VITALS: BP 124/82
--- NOTE | 2020-03-10 11:32 | NUR ---
ED Nurse Note: Pt ambulated to ED from home d/t bilateral knee pain and lower back pain. Pt is AOx4 calm and cooperative to care, per pt she tripped and feel 3 days ago from a store; landed her knees on the floor. Pt denies any loss of consciousness nor head trauma. Pt's VSS, on RA, afebrile on triage.
[2020-03-10] MEDS ORDERED: Acetaminophen 500mg (ES) tab ORAL ONE (11:45)
[2020-03-10] MEDS ORDERED: TYLENOL EXTRA500 MG ORAL (12:24)
[2020-03-10] MEDS ORDERED: LIDODERM700 M1 TOPIC (12:24)
[2020-03-10 12:30] VITALS: BP 124/82
--- NOTE | 2020-03-10 13:46 | Diagnostic Imaging Report ---
EXAM: XR Right Knee, 3 Views CLINICAL HISTORY: PAIN TECHNIQUE: Three views of the right knee. COMPARISON: None FINDINGS: Bones/joints: No displaced fracture or dislocation identified. Joint space is maintained. No bony lesion. No knee joint effusion. Soft tissues: Normal. IMPRESSION: No displaced fracture or dislocation identified.
--- NOTE | 2020-03-10 13:47 | Diagnostic Imaging Report ---
EXAM: XR Left Knee, 3 Views CLINICAL HISTORY: PAIN TECHNIQUE: Three views of the left knee. COMPARISON: None FINDINGS: Bones/joints: No displaced fracture or dislocation identified. Joint space is maintained. No bony lesion. No knee joint effusion. Soft tissues: Normal. IMPRESSION: No displaced fracture or dislocation identified.
--- NOTE | 2020-03-11 07:49 | Emergency Room Report ---
History of Present Illness General Chief Complaint: Multiple Trauma/Fall Source: Patient Present Illness HPI 54-year-old female presents the ED complaining of bilateral knee pain and back pain status post fall. States she tripped and fell 3 days ago falling forward and landing on her knees. Denies hitting her head or LOC. Notes pain to her knees and her lower back. Throbbing, 8 out of 10, nonradiating. Denies any other injuries. No other aggravating relieving factors. Denies any other associated symptoms Allergies: Coded Allergies: No Known Allergies (Unverified , 07/20/12) COVID-19 Screening Contact w/high risk pt: No Recent Travel to affected area: No Experienced COVID-19 symptoms?: No COVID-19 symptoms experienced: Flu-Like Symptoms COVID-19 Testing performed BROOM HANDLE DIPPER: No Patient History Past Medical History: HTN, asthma Past Surgical History: none Pertinent Family History: none Social History: Denies: smoking, alcohol use, drug use Now: No Immunizations: UTD Reviewed Nursing Documentation: PMH: Agreed; PSxH: Agreed Nursing Documentation-PMH Past Medical History: No History, Except For Hx Hypertension: Yes - HIGH CHOLESTEROL Hx Pacemaker: No Hx Asthma: Yes - BRONCHITIS Hx COPD: No Hx Diabetes: No Hx Cancer: No Hx Gastrointestinal Problems: No Hx Dialysis: No Hx Neurological Problems: No Hx Cerebrovascular Accident: No Hx Seizures: No Review of Systems All Other Systems: negative except mentioned in HPI Physical Exam Vital Signs Date Time Temp Pulse Resp B/P (MAP) Pulse Ox O2 Delivery O2 Flow Rate FiO2 03/10/20 11:23 98.1 68 16 124/82 (96) 96 Room Air Sp02 EP Interpretation: reviewed, normal General Appearance: no apparent distress, alert, GCS 15, non-toxic Head: normocephalic, atraumatic Eyes: bilateral eye normal inspection, bilateral eye PERRL ENT: hearing grossly normal, normal pharynx, no angioedema, normal voice Neck: full range of motion, supple/symm/no masses Respiratory: chest non-tender, lungs clear, normal breath sounds, speaking full sentences Cardiovascular #1: regular rate, rhythm, no edema Cardiovascular #2: 2+ carotid (R), 2+ carotid (L), 2+ radial (R), 2+ radial (L), 2+ dorsalis pedis (R), 2+ dorsalis pedis (L) Gastrointestinal: normal bowel sounds, non tender, soft, non-distended, no guarding, no rebound Rectal: deferred Genitourinary: normal inspection, no CVA tenderness Musculoskeletal: back normal, normal range of motion, gait/station normal, tender - Bilateral knee tenderness Neurologic: alert, motor strength/tone normal, oriented x3, sensory intact, responsive, speech normal Psychiatric: judgement/insight normal, memory normal, mood/affect normal, no suicidal/homicidal ideation Reflexes: 3+ bicep (R), 3+ bicep (L), 3+ tricep (R), 3+ tricep (L), 3+ knee (R), 3+ knee (L) Skin: no rash Lymphatic: no adenopathy Medical Decision Making Diagnostic Impression: Primary Impression: Fall Qualified Codes: W19.XXXA - Unspecified fall, initial encounter Additional Impression: Knee contusion Qualified Codes: S80.00XA - Contusion of unspecified knee, initial encounter ER Course Hospital Course 54-year-old female presents with bilateral knee pain and back pain status post trip and fall Differential diagnoses include: Fracture, dislocation, sprain, contusion Clinical course Patient placed on stretcher. After initial history and physical, I ordered pain medications and Xrays of bilateral knee Xrays read shows no acute fracture/dislocation. I discussed findings with patient. On reassessment pain improved. Reassurance given. Safe for discharge close outpatient follow-up. I will provide referrals Diagnosis -fall, knee contusion Stable and discharged to home with prescription for Tylenol, Lidoderm. apply ice, keep elevated. weight bear as tolerated. Followup with PMD/Ortho. Return to ED if symptoms recur or worsen Other X-Ray Diagnostic Results Other X-Ray Diagnostic Results #1: X-Ray ordered: Left knee # of Views/Limited Vs Complete: 3 View Indication: Pain EP Interpretation: Yes Interpretation: no dislocation, no soft tissue swelling, no fractures Impression: No acute disease Electronically Signed by: Electronically signed by Tim Edmond MD Other X-Ray Diagnostic Results #2: X-Ray ordered: Right knee # of Views/Limited Vs Complete: 3 View Indication: Pain EP Interpretation: Yes Interpretation: no dislocation, no soft tissue swelling, no fractures Impression: No acute disease Electronically Signed by: Electronically signed by Tim Edmond MD Last Vital Signs Date Time Temp Pulse Resp B/P (MAP) Pulse Ox O2 Delivery O2 Flow Rate FiO2 03/10/20 12:30 98.1 87 16 124/82 96 Room Air Status: improved Disposition: HOME, SELF-CARE Condition: Stable Scripts Lidocaine Patch* (Lidoderm Patch*) 1 Each Adh..patch 1 PATCH TOPIC DAILY, #7 PATCH 0 Refills Patch(es) may remain in place for up to 12 hours in any 24-hour period. Prov: Tim Edmond MD 03/10/20 Acetaminophen* (TYLENOL EXTRA STRENGTH*) 500 Mg Tablet 500 MG ORAL Q8H PRN for Prn Headache/Temp > 101, #30 TAB 0 Refills Prov: Tim Edmond MD 03/10/20 [facility] 24 hour /7 days a week by Appointment Only [address] [facility] [address] Patient Instructions: Contusion, [id number] Tim Edmond MD Mar 11, 2020 07:49
== END 2020-03-10 12:30 | disposition home or self-care (01) ==
LOC: EMR 11:49
DX: M25.562 Pain in left knee (principal); M25.561 Pain in right knee; S80.00XA Contusion of unspecified knee, initial encounter; E78.00 Pure hypercholesterolemia, unspecified; I10 Essential (primary) hypertension; W01.0XXA Fall on same level from slipping, tripping and stumbling without subsequent striking against object, initial encounter; Y92.9 Unspecified place or not applicable; M54.5 Low back pain
CPT/HCPCS: 73562; Z7502; 99284

== ENCOUNTER 2020-05-06 12:04 | Emergency (ER) | payer MEDICAID ==
[~2020-05-06] VITALS: Ht 165.1 cm; Wt 90.7 kg
[~2020-05-06 12:04] MED LIST changes: +LIDODERM700 M1 TOPIC; +TYLENOL EXTRA500 MG ORAL
[2020-05-06 12:40] VITALS: BP 142/95
--- NOTE | 2020-05-06 12:41 | Emergency Room Report ---
History of Present Illness General Chief Complaint: Chest Pain Source: Patient Present Illness HPI Disclaimer: Please note that this report is being documented using [employer]ified [employer] technology. This can lead to erroneous entry secondary to incorrect interpretation by the dictating instrument. HPI: 55-year-old female presents with multiple complaints. Patient reports 1 week flulike symptoms. She reports nasal congestion, sore throat, dry cough, left-sided chest pressure, nausea and diarrhea. Denies vomiting, fever. Reports chills. Recently exposed to COVID-19 positive individual with close contacts. Patient has not yet been tested. Has been taking antibiotics that are not prescribed to her. Amoxicillin 3 times daily but unknown dosage. She has been taking it for 2 days. Denies shortness of breath, wheezing. She has a history of mild asthma but has not required her albuterol inhaler. PMH: Asthma, obesity PSH: Reviewed Allergies: Reviewed Social Hx: Reviewed Allergies: Coded Allergies: No Known Allergies (Unverified , 07/20/12) COVID-19 Screening Contact w/high risk pt: No Recent Travel to affected area: No Experienced COVID-19 symptoms?: No COVID-19 symptoms experienced: Flu-Like Symptoms COVID-19 Testing performed SYSTEMS SECURITY ANALYST: No Nursing Documentation-PMH Past Medical History: No History, Except For Hx Hypertension: Yes - HIGH CHOLESTEROL Hx Pacemaker: No Hx Asthma: Yes - BRONCHITIS Hx COPD: No Hx Diabetes: No Hx Cancer: No Hx Gastrointestinal Problems: No Hx Dialysis: No Hx Neurological Problems: No Hx Cerebrovascular Accident: No Hx Seizures: No Review of Systems All Other Systems: negative except mentioned in HPI Physical Exam Vital Signs Date Time Temp Pulse Resp B/P (MAP) Pulse Ox O2 Delivery O2 Flow Rate FiO2 05/06/20 12:18 98.4 77 16 148/99 (115) 95 Room Air General: Awake and alert, no acute distress HEENT: NC/AT. EOMI. Cardiovascular: RRR. S1 and S2 normal. No murmur appreciated Resp: Normal work of breathing. No cough, wheezing or crackles appreciated Abdomen: Abdomen is soft, nondistended. Nontender, obese abdomen Skin: Intact. No abrasions, laceration or rash over the exposed skin MSK: Normal tone and bulk. Moving all extremities. No obvious deformity. Neuro: Awake and alert. Mentating appropriately. Medical Decision Making Diagnostic Impression: Primary Impression: Exposure to COVID-19 virus ER Course 55-year-old female presents complaining of flulike symptoms after exposure to Covid positive family member. Concern for viral syndrome, COVID-19, pneumonia, ACS, dehydration among others. While the patient has had close contact with COVID-19 positive individual she does not require breathing treatment, supplemental oxygen is otherwise well-appearing. Due to limited supply unable to offer COVID-19 testing to the patient at this time. EKG shows normal sinus rhythm and no evidence of ischemia. No obvious infiltrates on chest x-ray. Labs including troponin are within normal limits. The patient is well-appearing stable for outpatient follow-up. Discussed quarantine precautions and need to obtain outpatient COVID-19 testing. She understands and agrees with this treatment plan will be discharged home. Laboratory Tests Test 05/06/20 12:45 White Blood Count 3.7 K/UL (4.8-10.8) L Red Blood Count 4.40 M/UL (4.20-5.40) Hemoglobin 12.1 G/DL (12.0-16.0) Hematocrit 36.0 % (37.0-47.0) L Mean Corpuscular Volume 82 FL (80-99) Mean Corpuscular Hemoglobin 27.5 PG (27.0-31.0) Mean Corpuscular Hemoglobin Concent 33.7 G/DL (32.0-36.0) Red Cell Distribution Width 15.0 % (11.6-14.8) H Platelet Count 194 K/UL (150-450) Mean Platelet Volume 7.9 FL (6.5-10.1) Neutrophils (%) (Auto) 49.1 % (45.0-75.0) Lymphocytes (%) (Auto) 38.1 % (20.0-45.0) Monocytes (%) (Auto) 9.7 % (1.0-10.0) Eosinophils (%) (Auto) 2.7 % (0.0-3.0) Basophils (%) (Auto) 0.4 % (0.0-2.0) Sodium Level 143 MMOL/L (136-145) Potassium Level 3.4 MMOL/L (3.5-5.1) L Chloride Level 106 MMOL/L (98-107) Carbon Dioxide Level 32 MMOL/L (21-32) Anion Gap 5 mmol/L (5-15) Blood Urea Nitrogen 12 mg/dL (7-18) Creatinine 0.9 MG/DL (0.55-1.30) Estimated Glomerular Filtration Rate > 60 mL/min (>60) Glucose Level 104 MG/DL (74-106) Calcium Level 8.6 MG/DL (8.5-10.1) Total Bilirubin 0.5 MG/DL (0.2-1.0) Aspartate Amino Transferase (AST) 25 U/L (15-37) Alanine Aminotransferase (ALT) 46 U/L (12-78) Alkaline Phosphatase 55 U/L (46-116) Troponin I 0.005 ng/mL (0.000-0.056) Total Protein 7.0 G/DL (6.4-8.2) Albumin 3.6 G/DL (3.4-5.0) Globulin 3.4 g/dL Albumin/Globulin Ratio 1.1 (1.0-2.7) EKG Diagnostic Results Troponin ordered: Yes When was troponin ordered?: May 06, 2020 EKG Time: 12:44 Rate: normal Rhythm: NSR ST Segments: no acute changes Other Impression Sinus rhythm, normal axis, normal intervals, no ST segment changes. Rhythm Strip Diag. Results Rhythm Strip Time: 12:44 EP Interpretation: yes Rate: 60s Rhythm: NSR, no PVC's, no ectopy Chest X-Ray Diagnostic Results Chest X-Ray Diagnostic Results : Chest X-Ray Ordered: Yes # of Views/Limited/Complete: 1 View Indication: Other - Cough Interpretation: no consolidation, no effusion, no pneumothorax, no acute cardiopulmonary disease Impression: No acute disease Electronically Signed by: Electronically signed by Dr. Simone Parada MD Last Vital Signs Date Time Temp Pulse Resp B/P (MAP) Pulse Ox O2 Delivery O2 Flow Rate FiO2 05/06/20 12:18 98.4 77 16 148/99 (115) 95 Room Air Disposition: HOME, SELF-CARE Condition: Stable Referrals: [facility],REFERRING (PCP) Simone Parada MD May 06, 2020 12:41
--- NOTE | 2020-05-06 13:19 | Diagnostic Imaging Report ---
EXAM: XR Chest, 1 View CLINICAL HISTORY: CP TECHNIQUE: Frontal view of the chest. COMPARISON: Chest x-ray 11/05/18 FINDINGS: Lungs: Unremarkable. No consolidation. Pleural space: Unremarkable. No pneumothorax. Heart: Unremarkable. No cardiomegaly. Mediastinum: Unremarkable. Bones/joints: Unremarkable. IMPRESSION: Unremarkable chest x-ray.
[2020-05-06 13:20] LABS: BASOPHILS % (AUTO) 0.4 % (0.0-2.0); EOSINOPHILS % (AUTO) 2.7 % (0.0-3.0); HEMOGLOBIN 12.1 G/DL (12.0-16.0); LYMPHOCYTES % (AUTO) 38.1 % (20.0-45.0); MEAN CORPUSCULAR VOLUME 82 FL (80-99); MONOCYTES % (AUTO) 9.7 % (1.0-10.0); NEUTROPHILS % (AUTO) 49.1 % (45.0-75.0); PLATELET COUNT 194 K/UL (150-450); WHITE BLOOD COUNT 3.7 K/UL (4.8-10.8)
[2020-05-06 13:23] LABS: ANION GAP 5 mmol/L (5-15); BLOOD UREA NITROGEN 12 mg/dL (7-18); CALCIUM 8.6 MG/DL (8.5-10.1); CARBON DIOXIDE 32 MMOL/L (21-32); CHLORIDE 106 MMOL/L (98-107); CREATININE 0.9 MG/DL (0.55-1.30); POTASSIUM 3.4 MMOL/L (3.5-5.1); SODIUM 143 MMOL/L (136-145)
[2020-05-06 13:28] LABS: ALANINE AMINOTRANSFERASE 46 U/L (12-78); ALBUMIN 3.6 G/DL (3.4-5.0); ALBUMIN/GLOBULIN RATIO 1.1 (1.0-2.7); ALKALINE PHOSPHATASE 55 U/L (46-116); ASPARTATE AMINO TRANSFERASE 25 U/L (15-37); BILIRUBIN,TOTAL 0.5 MG/DL (0.2-1.0)
[2020-05-06 13:52] VITALS: BP 146/96
== END 2020-05-06 13:52 | disposition home or self-care (01) ==
LOC: EMR 12:30
DX: Z20.828 Contact with and (suspected) exposure to other viral communicable diseases (principal); R05 Cough; R07.89 Other chest pain; R09.81 Nasal congestion; R19.7 Diarrhea, unspecified; R11.0 Nausea; J45.909 Unspecified asthma, uncomplicated; E66.9 Obesity, unspecified
CPT/HCPCS: 36415; 71045; 80053; 84484; 85025; 93005; Z7502; 99284